=== PATIENT | female | born 1960 | race Caucasian/White ===

== ENCOUNTER 2016-05-19 08:34 | Emergency (ER) | payer OTHER ==
[~2016-05-19] VITALS: Ht 167.6 cm; Wt 63.5 kg
[~2016-05-19 08:34] MED LIST: HYDROCODON-ACE1 EA15 ORAL
[2016-05-19] MEDS ORDERED: NKM (08:46)
[2016-05-19] MEDS ORDERED: Norco 10mg/325mg tab ORAL ONE (09:00)
[2016-05-19] MEDS ORDERED: Ketorolac 60mg Inj IM ONE (09:00)
--- NOTE | 2016-05-19 09:07 | Emergency Room Report ---
History of Present Illness General Chief Complaint: Multiple Trauma/Fall Source: Patient Present Illness HPI Patient has as with complaints of right inguinal pain Right hand pain and right foot swelling She reports that sometime after midnight she had a fall backwards Describes a mechanical fall in nature Denies any lightheadedness or dizziness Denies any chest pain or shortness of breath denies any head injury denies any neck pain Pain to the right inguinal area is 5/10 worse with movement Allergies: Coded Allergies: No Known Allergies (Unverified , 04/23/16) Patient History Past Medical History: see triage record Pertinent Family History: none Last Menstrual Period: na Now: No Reviewed Nursing Documentation: PMH: Agreed, PSxH: Agreed Nursing Documentation-PMH Past Medical History: No Stated History Review of Systems All Other Systems: negative except mentioned in HPI Physical Exam Vital Signs Date Time Temp Pulse Resp B/P Pulse Ox O2 Delivery O2 Flow Rate FiO2 05/19/16 08:43 99.3 112 18 137/82 98 Room Air Sp02 EP Interpretation: reviewed, normal General Appearance: mild distress - in acute pain Head: normocephalic, atraumatic Eyes: bilateral eye EOMI, bilateral eye PERRL ENT: hearing grossly normal, normal pharynx, TMs + canals normal, uvula midline Neck: full range of motion, supple, no meningismus, no bony tend Respiratory: lungs clear, normal breath sounds, no rhonchi, no respiratory distress, no retraction, no accessory muscle use Cardiovascular #1: normal peripheral pulses, regular rate, rhythm, no edema, no gallop, no JVD, no murmur Gastrointestinal: normal bowel sounds, non tender, soft, no mass, no organomegaly, non-distended, no guarding, no hernia, no pulsatile mass, no rebound Genitourinary: no CVA tenderness Musculoskeletal: other - Abrasions to the posterior thigh on the right leg, however mainly tender on the inguinal area on palpation, bruising to the right palmar aspect of the hand Neurologic: oriented x3, responsive, sensory intact Psychiatric: mood/affect normal Skin: warm/dry, palpation normal, other - as noted above Lymphatic: normal inspection, no adenopathy Medical Decision Making Diagnostic Impression: Primary Impression: Pubic ramus fracture Additional Impression: Bone lesion ER Course Given the patient's presentation multiple imaging studies were initiated Patient's CAT scan does reveal a right-sided superior and inferior pubic rami fracture Patient had x-ray was read by radiology as showing evidence of a lytic lesion This is felt to be likely benign however the patient does require close outpatient followup for this Patient has IV established with pain medications require further inpatient care and orthopedic consultation Along with pain management Labs Test 05/19/16 11:20 White Blood Count 12.1 K/UL (4.8-10.8) Red Blood Count 4.77 M/UL (4.20-5.40) Hemoglobin 14.8 G/DL (12.0-16.0) Hematocrit 46.5 % (37.0-47.0) Mean Corpuscular Volume 98 FL (80-99) Mean Corpuscular Hemoglobin 30.9 PG (27.0-31.0) Mean Corpuscular Hemoglobin Concent 31.7 G/DL (32.0-36.0) Red Cell Distribution Width 12.6 % (11.6-14.8) Platelet Count 238 K/UL (150-450) Mean Platelet Volume 7.1 FL (6.5-10.1) Neutrophils (%) (Auto) 81.3 % (45.0-75.0) Lymphocytes (%) (Auto) 12.9 % (20.0-45.0) Monocytes (%) (Auto) 4.4 % (1.0-10.0) Eosinophils (%) (Auto) 0.4 % (0.0-3.0) Basophils (%) (Auto) 1.0 % (0.0-2.0) Prothrombin Time 10.0 SEC (9.30-11.50) Prothromb Time International Ratio 1.0 (0.9-1.1) Activated Partial Thromboplast Time 27 SEC (23-33) Sodium Level 144 mEQ/L (135-145) Potassium Level 4.2 mEQ/L (3.4-4.9) Chloride Level 103 mEQ/L (98-107) Carbon Dioxide Level 26 mEQ/L (20-30) Anion Gap 15 (5-15) Blood Urea Nitrogen 11 mg/dL (7-23) Creatinine 0.8 mg/dL (0.5-0.9) Estimat Glomerular Filtration Rate > 60 mL/min (>60) Glucose Level 100 mg/dL (74-106) Calcium Level 9.3 mg/dL (8.6-10.2) Total Bilirubin 0.4 mg/dL (0.0-1.2) Aspartate Amino Transf (AST/SGOT) 23 U/L (5-40) Alanine Aminotransferase (ALT/SGPT) 23 U/L (3-33) Alkaline Phosphatase 101 U/L (35-104) Total Creatine Kinase 195 U/L (26-140) Creatine Kinase MB 4.1 ng/mL (< 3.8) Creatine Kinase MB Relative Index 2.1 Total Protein 7.6 g/dL (6.6-8.7) Albumin 4.8 g/dL (3.5-5.2) Globulin 2.8 g/dL Albumin/Globulin Ratio 1.7 (1.0-2.7) Rhythm Strip Diag. Results EP Interpretation: yes Rate: 76 Rhythm: NSR, no PVC's, no ectopy Other X-Ray Diagnostic Results Other X-Ray Diagnostic Results #1: EP Interpretation: Yes Findings: no fractures, no dislocation, no soft tissue swelling, other - lytic lesion in the fourth and fifth digit Number of Views: 3 - right hand Other X-Ray Diagnostic Results #2: EP Interpretation: Yes Findings: no fractures, no dislocation, no soft tissue swelling Number of Views: 3 - right foot CT/MRI/US Diagnostic Results CT/MRI/US Diagnostic Results : Impression CT pelvicImpression: Positive for nondisplaced right superior and inferior pubic rami fractures. Minimal associated soft tissue abnormality Negative for hip fracture Incidental findings as noted, including diverticulosis, tiny fat-containing umbilical hernia, right iliac bone island. Last Vital Signs Date Time Temp Pulse Resp B/P Pulse Ox O2 Delivery O2 Flow Rate FiO2 05/19/16 08:43 99.3 112 18 137/82 98 Room Air Status: improved Disposition: ADMITTED INPATIENT Condition: Serious Referrals: [facility],REFERRING (PCP) HADLEY SANCHEZ D.O. May 19, 2016 09:07
--- NOTE | 2016-05-19 10:32 | Diagnostic Imaging Report ---
Indication: PAIN, right-sided pain status post fall Technique: Noncontrast spiral acquisitions obtained through the pelvis. Multiplanar reconstructions generated. Total dose length product 335 mGycm. CTDIvol(s) 12 mGy Comparison: CT abdomen pelvis dated 04/23/2016 Findings: There is a comminuted horizontal nondisplaced fracture of the right superior pubic ramus. This is best appreciated on the coronal and sagittal reconstructed images, not clearly evident on the axial images. There is a very subtle fracture deformity of the inferior pubic ramus, nondisplaced. This appears to extend to the pubic symphysis on the sagittal reconstructed images. No hip fracture demonstrated. There is minimal stranding of the adjacent fat, but no significant soft tissue hematoma demonstrated. No other evidence of fracture or dislocation. There is a sclerotic lesion, presumably a bone island, within the right iliac bone just adjacent to the sacroiliac joint. The included pelvic viscera are remarkable for the presence of colonic diverticulosis. There is a tiny fat-containing umbilical hernia. Impression: Positive for nondisplaced right superior and inferior pubic rami fractures. Minimal associated soft tissue abnormality Negative for hip fracture Incidental findings as noted, including diverticulosis, tiny fat-containing umbilical hernia, right iliac bone island. The CT scanner at [facility] is accredited by the [employer] and the scans are performed using protocols designed to limit radiation exposure to as low as reasonably achievable to attain images of sufficient resolution adequate for diagnostic evaluation.
--- NOTE | 2016-05-19 10:43 | Diagnostic Imaging Report ---
Indication: PAIN Technique: 3 views right hand Comparison: none Findings: There is a 9 mm lucency within the fourth middle phalangeal shaft proximally. This has well-defined and partially sclerotic margins. No acute fractures. No dislocations. Joint spaces are preserved Impression: Osteolytic lesion within fourth middle phalanx. Most likely benign enchondroma. Recommend comparison with any previous radiographs available, consider MRI for further evaluation as clinically indicated No acute bony trauma Findings discussed by phone with Dr. Forbes in the emergency room at the time of interpretation
[2016-05-19 11:00] VITALS: BP 133/71
[2016-05-19] MEDS ORDERED: Morphine Sulfate 4mg/ml Inj IM ONE (11:15)
[2016-05-19] MEDS ORDERED: Morphine Sulfate 4mg/ml Inj IVP ONE ×3 (11:45→17:45)
[2016-05-19 12:00] LABS: EOSINOPHILS % (AUTO) 0.4 % (0.0-3.0); LYMPHOCYTES % (AUTO) 12.9 % (20.0-45.0); MEAN CORPUSCULAR HEMOGLOBIN 30.9 PG (27.0-31.0); MEAN CORPUSCULAR HGB CONC 31.7 G/DL (32.0-36.0); MEAN CORPUSCULAR VOLUME 98 FL (80-99); MEAN PLATELET VOLUME 7.1 FL (6.5-10.1); MONOCYTES % (AUTO) 4.4 % (1.0-10.0); NEUTROPHILS % (AUTO) 81.3 % (45.0-75.0); PLATELET COUNT 238 K/UL (150-450); RED BLOOD COUNT 4.77 M/UL (4.20-5.40); RED CELL DISTRIBUTION WIDTH 12.6 % (11.6-14.8); WHITE BLOOD COUNT 12.1 K/UL (4.8-10.8)
[2016-05-19 12:12] LABS: ALANINE AMINOTRANSFERASE 23 U/L (3-33); ALBUMIN/GLOBULIN RATIO 1.7 (1.0-2.7); ANION GAP 15 (5-15); ASPARTATE AMINO TRANSFERASE 23 U/L (5-40); CALCIUM 9.3 mg/dL (8.6-10.2); CARBON DIOXIDE 26 mEQ/L (20-30); CHLORIDE 103 mEQ/L (98-107); CREATININE 0.8 mg/dL (0.5-0.9); GLOMERULAR FILTRATION RATE > 60 mL/min (>60); HEMOLYSIS 24; POTASSIUM 4.2 mEQ/L (3.4-4.9); SODIUM 144 mEQ/L (135-145); TOTAL PROTEIN 7.6 g/dL (6.6-8.7)
[2016-05-19 12:22] LABS: CKMB 4.1 ng/mL (< 3.8)
[2016-05-19 16:05] VITALS: BP 142/72
[2016-05-19 18:23] VITALS: BP 139/69
--- NOTE | 2016-05-22 08:35 | Cardiology Report ---
APPROVED REPORT EKG Measurement Heart [id number] ID [id number] Normal sinus rhythm Normal ECG
--- NOTE | 2016-05-26 10:31 | Diagnostic Imaging Report ---
Indication: PAIN Technique: 3 views right foot Comparison: none Findings: There is hallux valgus and metatarsus adductus. No acute fractures. No dislocations. The joint spaces are preserved. There is a small plantar spur Impression: No acute bony trauma
== END 2016-05-19 18:25 | disposition short-term general hospital (02) ==
LOC: EMR 08:59
DX: S32.591A Other specified fracture of right pubis, initial encounter for closed fracture (principal); W01.0XXA Fall on same level from slipping, tripping and stumbling without subsequent striking against object, initial encounter; Y92.009 Unspecified place in unspecified non-institutional (private) residence as the place of occurrence of the external cause; Y99.8 Other external cause status; M89.9 Disorder of bone, unspecified; M79.641 Pain in right hand; M79.671 Pain in right foot
CPT/HCPCS: 36415; 72192; 73130; 73630; 80053; 82550; 82553; 85025; 85610; 85730; 93005; 96372; 96374; 96375; 99284; J2270; J2405